=== PATIENT | female | born 1975 | race Caucasian/White ===

== ENCOUNTER 2016-04-22 14:41 | Emergency (ER) | payer MEDICAID, OTHER ==
[~2016-04-22] VITALS: Ht 160 cm; Wt 68.1 kg
[~2016-04-22 14:41] MED LIST: CRS350T PO; HYOS0.1216 PO; IBP200T PO; LORA2TAB PO; NF-TYLARTH PO; OXYC1TAB8 PO
--- OUTSIDE RECORDS SUMMARY | 2016-04-22 14:46 | XMS REPORT | Continuity of Care Document ---
Author Author [facility] Address Unknown Phone Unavailable Support Name Relationship Address Phone RIVER MOSES MD Caregiver [address] [place] [address] Insurance Providers Payer Name Policy Number Subscriber Name Relationship Workmans Comp Other [id number] Nohelia Mueller 18 Self / Same As Patient Other1 [id number] Nohelia Mueller 20 Self / Same As Patient Advance Directives Directive Response Recorded Date/Time Advanced Directives No 03/31/16 1:18pm Chief Complaint and Reason for Visit Chief Complaint Pain Reason for Visit Exacerbation of chronic back pain Problems Active Problems Medical Problem Onset Date Status Exacerbation of chronic back pain Unknown Acute Medications Current Home Medications Medication Dose Units Route Directions Days/Qty Instructions Start Date Carisoprodol (Soma) 350 Mg 350 Mg ORAL Q6hr Prn as needed for Muscle Spasms 03/31/16 Oxycodone/Acetaminophen 1 Each 1-2 Tab ORAL Q4-6HR Prn as needed for Back Pain 03/31/16 Lorazepam 2 Mg Unknown Dose ORAL Every 4 Hrs On Schedule as needed for Anxiety 03/31/16 Hyoscyamine Sulfate 0.125 Mg 0.125 Mg ORAL Q6hr Prn as needed for Bowel Pain 03/31/16 Ibuprofen (Motrin) 200 Mg 800 Mg ORAL Q6hr Prn as needed for Pain Acetaminophen (Acetaminophen Extended Release) 650 Mg 2 Tab ORAL Q8hr Prn as needed for Pain 03/31/16 Social History Query Response Start Date Stop Date Smoking Status Current every day smoker Hospital Discharge Instructions No hospital discharge instructions. Plan of Care Discharge Date 03/31/16 4:24pm Disposition 01 HOME OR SELF-CARE Condition at Discharge Stable Instructions/Education Provided Chronic Pain (DC) Prescriptions See Medication Section Additional Instructions/Education Establish with the provider of your choice for ongoing medical care and prescriptions. Return if symptoms worsen. Heat/cold per comfort. Some of your test results may not be complete prior to your leaving the Emergency Department. The Emergency Department is not authorized to give test results over the phone. Please contact the doctor's office listed in this packet of information for your final results. Follow up with your primary care physician or return to the Emergency Department for worsening or worrisome symptoms. * Emergency Department phone number: [phone], x [phone]* MEDICAL RECORD If you need copies of your X-rays, call [phone]. If you need copies of your medical record, including lab results, a signed authorization for release of records will be required. A telephone call for release of Health Information is not allowed. BILLING Billing can sometimes be confusing and frustrating. To help avoid confusion in the future, please take a moment to acquaint yourself with the billing parties for services. SERVICE BILLING [facility] Emergency Room Services [facility] Physician Services [facility] X-[facility] [place] [facility] Patients will receive bills for services from the appropriate provider. If you have any questions about your [facility] bill, our staff will be happy to assist you. Please call [phone], and ask for the billing department. THANK YOU for choosing [facility] as your emergency care provider! Care Plan and Goals ~~Discharge Care Plan~~ Problem: Back pain Goal: Decreased level of pain. Return to usual activities. Instructions: Take medication(s) as directed; follow up with your primary care physician as directed; follow patient home care instructions. Apply ice or heat to site for comfort. Functional Status No functional status results. Allergies, Adverse Reactions, Alerts Allergen Type Severity Reaction Status Last Updated Penicillin Allergy Unknown Active 03/31/16 Immunizations No immunization records. Vital Signs Acute Vital Signs Vital Response Date/Time Temperature (Fahrenheit) 97.1 03/31/2016 1:18pm Pulse 94 bpm 03/31/2016 1:18pm Respirations 16 03/31/2016 1:18pm Height 5 ft 3 in Weight 156 lb Body Mass Index 27.0 kg/m^2 Results No known relevant diagnostic tests, laboratory data and/or discharge summary. Procedures No known history of procedures. Encounters Encounter Location Arrival/Admit Date Discharge/Depart Date Attending Provider Departed Emergency Room [facility] 03/31/16 1:15pm 03/31/16 4:24pm RIVER MOSES MD Recent Diagnosis
[2016-04-22] MEDS ORDERED: ONDANSETRON 4 MG (ZOFRAN) ORAL DISSOLVE TAB PO ONE (15:15)
[2016-04-22] MEDS ORDERED: HYDROmorphone 2 MG/ML (DILAUDID) 1 ML SYRINGE IM ONE (15:15)
[2016-04-22] MEDS ORDERED: ORPHENADRINE 60 MG/2 ML (NORFLEX) AMP IM ONE (15:15)
[2016-04-22] MEDS ORDERED: NF-TORA10 PO (15:20)
[2016-04-22] MEDS ORDERED: CYCL10TA45 PO (15:20)
--- NOTE | 2016-04-22 15:51 | NUR ---
MEDICATION REASSESSMENT NOT DONE DUE TO PT LEAVING SHORTLY AFTER RECEIVING PAIN INJECTIONS
[2016-04-22 17:32] VITALS: BP 113/66
== END 2016-04-22 15:51 | disposition home or self-care (01) ==
LOC: ED 14:48
DX: M54.5 Low back pain (principal)
CPT/HCPCS: 96372; 99282; A9270; J1170; J2360; 99283

== ENCOUNTER 2016-04-28 10:24 | Emergency (ER) | payer MEDICAID ==
[~2016-04-28] VITALS: Ht 160 cm; Wt 70.0 kg
[~2016-04-28 10:24] MED LIST changes: +CYCL10TA45 PO; +NF-TORA10 PO
[2016-04-28 10:27] VITALS: BP 104/73
[2016-04-28] MEDS ORDERED: CYCL10TA45 PO (10:55)
[2016-04-28] MEDS ORDERED: KETOROLAC 60 MG/2 ML (TORADOL) VIAL IM ONE (10:55)
[2016-04-28] MEDS ORDERED: NF-TORA10 PO (10:55)
== END 2016-04-28 11:28 | disposition home or self-care (01) ==
LOC: ED 10:26
DX: M54.5 Low back pain (principal)
CPT/HCPCS: 96372; 99283; J1885